=== PATIENT | female | born 1985 | race African-American/Black ===

== ENCOUNTER 2017-04-07 13:57 | Emergency (ER) | payer OTHER ==
[2017-04-07 14:09] VITALS: BP 118/76; PULSE 71; TEMP 98.2; BMI 27.3
--- NOTE | 2017-04-07 14:38 | PDOC ---
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 Complaints of pain in both. No head injury used ice and Tylenol for pain relief 04/07/17 15:40 Occurred: reports: just prior to arrival Severity: reports: mild, moderate Pain Location: reports: lower extremity (right knee and left ankle ) Method of Injury: Yes: fall Modifying Factors: improves with: cold therapy Loss of Consciousness: no loss of consciousness Associated Symptoms (Fall): denies symptoms Past History - Travel Traveled outside of the country in the last 30 days: No Close contact w/someone who was outside of country & ill: No - Past Medical History Home Medications: Ambulatory Orders NK [No Known Home Medication] 04/07/17 Other medical history: Denies - Immunization History Immunization Up to Date: Yes - Psycho/Social/Smoking Cessation Hx Suicidal Ideation: No Smoking History: Never smoked Have you smoked in the past 12 months: No Information on smoking cessation initiated: No Hx Alcohol Use: No Drug/Substance Use Hx: No Substance Use Type: None Trauma Specific PMHX - Complaint Specific PMHX Back Injury: No Neck Injury: No Review of Systems - Review of Systems Able to Perform ROS?: Yes Is the patient limited [place] proficient: Yes Constitutional: Yes: See HPI, Malaise. No: Symptoms Reported Musculoskeletal: Yes: Symptoms Reported, See HPI, Joint Pain, Joint Swelling ( right knee, and left ankle) Integumentary: Yes: Symptoms Reported, See HPI, Bruising (right knee ) Neurological: Yes: See HPI. No: Symptoms reported, Headache All Other Systems: Reviewed and Negative *Physical Exam - Vital Signs Last Vital Signs Temp Pulse Resp BP Pulse Ox 98.2 F 71 17 118/76 100 04/07/17 14:05 04/07/17 14:05 04/07/17 14:05 04/07/17 14:05 04/07/17 14:05 - Physical Exam General Appearance: Yes: Nourished, Appropriately Dressed. No: Apparent Distress HEENT: positive: LILIA, Normal ENT Inspection, TMs Normal, Pharynx Normal Neck: positive: Tender Gastrointestinal/Abdominal: positive: Soft Musculoskeletal: positive: Normal Inspection Extremity: positive: Normal Capillary Refill, Normal Range of Motion, Tender ( to right patella ). negative: Normal Inspection (has mild swelling, and tenderness to right knee, patella is mobile without crepitus or step-offs, no medial or lateral collateral ligamentous pain, no posterior fossa pain, some bruising noted to patella) Integumentary: positive: Normal Color, Ecchymosis, Bruising, Other (left ankle with no point tenderness to medial or lateral malleolus, no navicular fifth metatarsal injury, neurovascular intact to toes. Ambulatory with minimal unsteadiness) Neurologic: positive: peer counselor II-XII NML intact, Fully Oriented, Alert, Normal Mood/ Affect, Normal Response, Motor Strength 5/5 Progress Note - Progress Note Progress Note: X-ray negative for fracture or dislocation to either knee or ankle, we'll treat conservatively with Cristo wraps and NSAIDs *DC/Admit/Observation/Transfer Diagnosis at time of Disposition: Contusion Qualifiers: Encounter type: initial encounter Contusion area: ankle Laterality: left Qualified Code(s): S90.02XA - Contusion of left ankle, initial encounter Contusion Qualifiers: Encounter type: initial encounter Contusion area: ankle Laterality: left Qualified Code(s): S90.02XA - Contusion of left ankle, initial encounter Mild sprain of left ankle Qualifiers: Encounter type: initial encounter Qualified Code(s): S93.402A - Sprain of unspecified ligament of left ankle, initial encounter - Discharge Dispostion Disposition: HOME Admit: No - Referrals Referrals: Enzo Disla PA [Primary Care Provider] - Mario Lim MD [Staff Physician] - - Patient Instructions Printed Discharge Instructions: DI for Ankle Sprain Additional Instructions: Rest, ice to area on and off for 15 minutes 4-6 times a day Avoid heavy lifting or exercise until pain and swelling is resolved or until further directed Keep area highly elevated to reduce swelling Use splints/Cristo wrap as directed Followup with orthopedist in one to 2 days if not improving, if significantly improved may wait one week for followup with orthopedist May use ibuprofen 2-200 mg tablets every 6 hours as needed for pain - Post Discharge Activity Work/School Note: Back to Work
[2017-04-07] MEDS ORDERED: IBUPROFEN 400 MG TABLET (FP) PO ONE (15:44)
== END 2017-04-07 15:44 | disposition home or self-care (01) ==
LOC: JERFT 13:57
DX: S93.402A Sprain of unspecified ligament of left ankle, initial encounter (principal); S90.02XA Contusion of left ankle, initial encounter; W01.0XXA Fall on same level from slipping, tripping and stumbling without subsequent striking against object, initial encounter; Y93.89 Activity, other specified; Y92.128 Other place in nursing home as the place of occurrence of the external cause; Y99.0 Civilian activity done for income or pay
CPT/HCPCS: 73562-TC-RT; 73610-TC-LT; 99281-25